=== PATIENT | female | born 1960 | race Caucasian/White ===

== ENCOUNTER → 2019-03-07 | Outpatient (CLI) | payer BC ==
--- NOTE | 2019-03-12 10:53 | US ---
INDICATION: Follow up right leg laser ablation surgery. DUPLEX ULTRASOUND RIGHT LOWER EXTREMITY VEINS: Multiple ultrasonic images were obtained, 03/07/19 - no comparisons. The greater saphenous vein was visualized for approximately 3.9 cm distal to the common femoral vein junction. Beyond the 3.9 cm junction, there is echogenic material within the greater saphenous vein with no flow to a level 3 cm below the knee. Flow was noted inferior to the injection site. Normal flow appeared to be present in the common femoral vein. IMPRESSION: Findings are compatible with satisfactory laser ablation right greater saphenous vein. MTDD
== END ==
LOC: FB.DI 12:37
PROVIDERS: ATTEND Surgery
DX: I83.91 Asymptomatic varicose veins of right lower extremity (principal)
CPT/HCPCS: 93971-RT